=== PATIENT | female | born 1975 | race Caucasian/White ===

== ENCOUNTER 2020-04-01 11:46 | Emergency (ER) | payer OTHER ==
[~2020-04-01] VITALS: Ht 167.6 cm; Wt 72.6 kg
[2020-04-01] MEDS ORDERED: VYVANSE20 MG PO (12:18)
[2020-04-01 13:42] VITALS: BP 140/83
== END 2020-04-01 13:44 | disposition home or self-care (01) ==
LOC: M.ERS 11:46
DX: Z53.21 Procedure and treatment not carried out due to patient leaving prior to being seen by health care provider (principal)